=== PATIENT | female | born 2000 | race Caucasian/White ===

== ENCOUNTER 2021-12-01 13:46 | Emergency (ER) | payer BC ==
[2021-12-01 15:03] LABS: HEMOGLOBIN 11.4 gm/dl (12.3-15.3); RED BLOOD COUNT 3.97 M/UL (4.00-5.10); WHITE BLOOD COUNT 13.8 K/UL (4.5-11.0)
[2021-12-01 15:27] LABS: BUN/CREATININE RATIO 13 (0-10)
[2021-12-01] MEDS ORDERED: MACROBID 100 M100 M1 PO (17:39)
== END 2021-12-01 17:48 | disposition home or self-care (01) ==
LOC: ER1 13:46
PROVIDERS: Emergency Medicine
DX: O99.891 Other specified diseases and conditions complicating pregnancy (principal); R55 Syncope and collapse; Z3A.32 32 weeks gestation of pregnancy; Z20.822 Contact with and (suspected) exposure to COVID-19
CPT/HCPCS: 80053; 81001; 82550; 82553; 82570; 83605; 83880; 84156; 84484; 85025; 87040; 87086; 93005; 99285; J0696; J7040; U0002

== ENCOUNTER 2021-12-01 17:53 | Outpatient (CLI) | payer BC ==
[~2021-12-01 17:53] MED LIST: MACROBID 100 M100 M1 PO
== END 2021-12-01 19:04 | disposition home or self-care (01) ==
LOC: GENOP 17:53
DX: O36.8190 Decreased fetal movements, unspecified trimester, not applicable or unspecified (principal)
CPT/HCPCS: G0463